=== PATIENT | male | born 1940 | race African-American/Black ===

== ENCOUNTER 2016-09-30 09:52 | Inpatient (IN) ==
[2016-09-30] MEDS ORDERED: NS 1,000 ML IV ONE ×2 (10:07→12:36)
--- NOTE | 2016-09-30 10:14 | PROVIDER DOCUMENTATION ---
HPI-Respiratory General - General Chief Complaint: Shortness of Breath Stated Complaint: Unresponsive Time Seen by Provider: 09/30/16 09:53 Source: EMS Allergies/Adverse Reactions: Patient Allergies Allergy/AdvReac Type Severity Reaction Status Date / Time No Known Allergies Allergy Verified 09/30/16 10:38 Home Medications: Home Medication List Medication Instructions Recorded Confirmed Last Taken Type Aspirin EC 325 mg PO DAILY 09/30/16 09/30/16 09/29/16 07:00 History 325 MG Atorvastatin Calcium [Lipitor] 80 mg PO HS 09/30/16 09/30/16 09/29/16 17:00 History 80 MG Bacitracin 500 unit TOP DAILY 09/30/16 09/30/16 09/29/16 10:00 History 500 UNIT Carvedilol [Coreg] 3.125 mg PO DAILY 09/30/16 09/30/16 09/29/16 10:00 History 3.125 MG Dorzolamide HCl/Timolol Maleat 1 drop BOTH EYES BID 09/30/16 09/30/16 09/29/16 18:00 History [Dorzolamide-Timolol Eye Drops] 1 DROP Latanoprost 1 drop BOTH EYES DAILY 09/30/16 09/30/16 09/29/16 10:00 History 1 DROP Lisinopril 2.5 mg PO DAILY 09/30/16 09/30/16 09/29/16 10:00 History 2.5 MG Phenytoin 100 mg PO DAILY 09/30/16 09/30/16 09/29/16 10:00 History 100 MG CAPSULE - History of Present Illness-Resp Nature of Presenting Problem: Pt is 76 y/o M presents to the ED with respiratory distress. EMS states respiratory distress per correction. EMS states O2 sat of 85 with 5L of oxygen. EMS states long history of smoking. EMS states Pt has cardiac history, mass on lung, and COPD. Severity in ED: reports: moderate Onset/Duration: reports: just prior to arrival Timing: reports: still present Exposure: reports: unknown cause Cough Quality/Degree: reports: no cough Current Respiratory Medication Therapy: Initiated see nurses note Modifying Factors: improves with: nothing Associated Symptoms: reports: shortness of breath. denies: chest pain/soreness , cough, dizziness, earache, facial pain, fever/chills, flu-like symptoms, headache, heart racing, hurts to breathe, hyperventilating, lightheadedness, muscle/bodyaches, nasal congestion, nasal drainage, sinus pain, short of breath , sore throat, sweaty, wheezing Similar Symptoms Previously?: Yes Recently seen or treated by another doctor?: No Review of Systems - Adult - REVIEW OF SYSTEMS - ADULT ROS:: unobtainable per condition Constitutional: denies: chills, fever Eyes: denies: blurred vision, double vision Ears, Nose, Mouth & Throat: denies: ear pain, nose pain, mouth swelling, throat pain Cardiovascular: denies: chest pain, heart murmur, irregular heart rate Respiratory: denies: cough, wheezing Gastrointestinal: denies: abdominal pain, diarrhea, nausea, vomiting Genitourinary: denies: dysuria, hematuria Musculoskeletal: denies: bone pain, joint pain, neck pain Integumentary: denies: hives, itching Neurological: denies: dizziness/vertigo, headache/migraines Psychiatric: reports: no symptoms reported Endocrine: reports: no symptoms reported Hematologic/Lymphatic: reports: no symptoms reported Allergic/Immunologic: reports: no symptoms reported All Other Systems: Reviewed and Negative Past History - Adult - PAST MEDICAL HISTORY-ADULT Review of Records: reports: Nursing Assessment Review, Medications Reviewed, Social history reviewed & non-contributory. Major Childhood Illnesses: reports: denies history Cardiovascular: reports: HTN Respiratory: reports: denies history Gastrointestinal: reports: denies history Obstetrical/Gynecological: reports: denies history Genitourinary: reports: denies history Musculoskeletal: reports: denies history Neurological: reports: CVA, Seizures/Epilepsy Endocrine/Immune: reports: Diabetes Other Conditions: reports: denies history - PRIOR SURGERIES/PROCEDURES Surgical/Procedure History: reports: cardiac stent - IMMUNIZATION STATUS Childhood Immunizations: See Nurse Assessment Flu Vaccine: See Nurse Assessment - FAMILY HISTORY Family History: reviewed, not pertinent - SOCIAL HISTORY Smoking: cigarettes, greater than 1 pack/day Provider spent 3-5 mins advising pt. on dangers of tobacco.: Discussed manners to quit use, and f/u contacts for add'l counseling. Substance Use: denies Living Situation: care facility (correction) Physical Exam-General - PHYSICAL EXAM-ADULT Initial Vital Signs Reviewed: Yes - CONSTITUTIONAL General Appearance: moderate distress, thin. negative: appears well (ill in appearance), alert - HEAD, EARS, NOSE, MOUTH & THROAT HENMT: TMs normal, other (tube placed). negative: moist mucous membranes (dry mucous membrane) - NECK Neck: full range of motion, supple, normal inspection - RESPIRATORY Respiratory: respiratory distress, decreased breath sounds, accessory muscle use , rhonchi (bilateral), retractions, decreased rate - CARDIOVASCULAR Cardiovascular: regular rate, rhythm, no edema, no gallop, no JVD, no murmur - GASTROINTESTINAL (ABDOMEN) Abdominal Exam: normal bowel sounds, soft, no organomegaly, no pulsatile mass - LYMPHATIC Lymphatic: no adenopathy - MUSCULOSKELETAL Extremity: no pedal edema, other (edema in bilateral upper extremities). 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, grossly normal, no motor/ sensory deficits - PSYCHIATRIC Psych/Mental Status: negative: normal mood/affect, normal thought content, normal thought process, oriented x 3 Progress - PLAN OF CARE/RESULTS Progress/Plan/Lab Results: Orders Category Date Time Status Cardiac Monitoring DIRECTED Care 09/30/16 09:57 Active Vaughan Cath Insertion ORDERED Care 09/30/16 10:10 Active IV Insertion ORDERED Care 09/30/16 09:57 Active Notify MD of + Sepsis Screen NOW Care 09/30/16 09:57 Active CHEST-PORTABLE [RAD] Stat Exams 09/30/16 09:58 Ordered BLOOD CULTURE [BLDCUL] Stat Lab 09/30/16 10:21 Ordered CBC WITH DIFF [HEME] Stat Lab 09/30/16 10:05 Ordered CK PROFILE [SP CHEM] Stat Lab 09/30/16 10:05 Ordered COMPREHENSIVE METABOLIC PANEL [CHEM] Stat Lab 09/30/16 10:05 Ordered LACTATE, PLASMA [CHEM] Stat Lab 09/30/16 10:05 Ordered PROTIME WITH INR [COAG] Stat Lab 09/30/16 10:05 Ordered PTT [COAG] Stat Lab 09/30/16 10:05 Ordered TROPONIN T Stat Lab 09/30/16 10:05 Ordered URINALYSIS W/POSS RFLX CULT [URINALYSIS] Stat Lab 09/30/16 09:57 Uncollected 0.9% Sodium Chloride Inj [Ns] 1,000 ml Med 09/30/16 10:07 Active IV 999 mls/hr Dextrose 5%-0.45% NaCl Inj [D5 1/2 Ns] 250 ml Med 09/30/16 11:00 Active Norepinephrine [Levophed] 8 mg IV As Directed Oxygen Device Stat Oth 09/30/16 09:57 Active Vital Signs - 24 hr 09/30/16 09/30/16 09/30/16 09:54 09:55 10:00 Temperature Pulse Rate 89 71 70 Respiratory 6 L 16 Rate Blood Pressure 77/58 77/58 O2 Sat by Pulse 98 98 Oximetry 09/30/16 09/30/16 09/30/16 10:05 10:07 10:08 Temperature 97.2 F L Pulse Rate 82 88 Respiratory 15 28 H Rate Blood Pressure 140/97 62/40 O2 Sat by Pulse 97 97 Oximetry 09/30/16 09/30/16 09/30/16 10:09 10:16 10:19 Temperature Pulse Rate 90 90 91 H Respiratory 15 16 19 Rate Blood Pressure 70/40 71/41 72/45 O2 Sat by Pulse 92 L Oximetry Laboratory Tests 09/30/16 09/30/16 09/30/16 10:00 10:00 10:00 WBC 9.84 RBC 3.69 L Hgb 11.2 L Hct 35.4 L MCV 95.9 MCH 30.4 MCHC 31.6 L RDW Std Deviation 13.9 Plt Count 168 MPV 11.5 H Immature Gran % (Auto) 0.0 Neut % (Auto) 92.8 H Lymph % (Auto) 4.[address] % (Auto) 3.0 Eos % (Auto) 0.1 Baso % (Auto) 0.0 Immature Gran # (Auto) 0.00 Neut # (Auto) 9.13 H Lymph # (Auto) 0.[address] [place] # (Auto) 0.30 Eos # (Auto) 0.01 Baso # (Auto) 0.00 PT 11.0 INR 1.04 PTT (Actin FS) 29.6 Specimen Type Sample Site pH pCO2 pO2 HCO3 Base Excess Oxyhemoglobin ABG O2 Sat (Calculated) ABG O2 Saturation ABG Carboxyhemoglobin ABG Methemoglobin Alexx Test A-a O2 Difference Total Hemoglobin Lactate Blood Gas Modality Vent Mode Spontaneous Rate FiO2 % Tidal Volume PEEP Sodium 138 Potassium 4.2 Chloride 97 L Carbon Dioxide 35 Anion Gap 6 BUN 52 H Creatinine 0.9 Estimated GFR/1.73 m2 > 60 BUN/Creatinine Ratio 58 Glucose 379 H Calculated Osmolality 305 Calcium 8.8 Total Bilirubin 0.26 AST 28 ALT 27 Alkaline Phosphatase 135 H Creatine Kinase 49 Troponin T Total Protein 6.7 Albumin 2.8 L Globulin 3.9 Albumin/Globulin Ratio 0.7 Urine Source Urine Color Urine Turbidity Urine pH Ur Specific [place] Urine Protein Ur Glucose (Stick) Ur Ketones (Stick) Urine Blood Urine Nitrite Urine Bilirubin Urobilinogen Dipstick Urine Leukocytes Urine WBC (Auto) Urine RBC (Auto) U Epithel Cells (Auto) Urine Bacteria (Auto) 09/30/16 09/30/16 09/30/16 10:00 10:35 11:07 WBC RBC Hgb Hct MCV MCH MCHC RDW Std Deviation Plt Count MPV Immature Gran % (Auto) Neut % (Auto) Lymph % (Auto) [place] % (Auto) Eos % (Auto) Baso % (Auto) Immature Gran # (Auto) Neut # (Auto) Lymph # (Auto) [place] # (Auto) Eos # (Auto) Baso # (Auto) PT INR PTT (Actin FS) Specimen Type ARTERIAL Sample Site R RADIAL pH 7.33 L pCO2 62 H* pO2 178 H HCO3 29.0 H Base Excess 5.2 H Oxyhemoglobin 96.2 ABG O2 Sat (Calculated) 16.2 ABG O2 Saturation 99.4 ABG Carboxyhemoglobin 1.20 ABG Methemoglobin 2.0 H Alexx Test YES A-a O2 Difference 458.0 Total Hemoglobin 11.7 Lactate 1.30 Blood Gas Modality VENTILATOR Vent Mode A/C Spontaneous Rate 16 FiO2 % 100.0 Tidal Volume 450 PEEP 5.0 Sodium Potassium Chloride Carbon Dioxide Anion Gap BUN Creatinine Estimated GFR/1.73 m2 BUN/Creatinine Ratio Glucose Calculated Osmolality Calcium Total Bilirubin AST ALT Alkaline Phosphatase Creatine Kinase Troponin T < 0.010 Total Protein Albumin Globulin Albumin/Globulin Ratio Urine Source CATH Urine Color YELLOW Urine Turbidity CLEAR Urine pH 6.0 Ur Specific [place] 1.023 Urine Protein 30 A Ur Glucose (Stick) 70 A Ur Ketones (Stick) NEGATIVE Urine Blood NEGATIVE Urine Nitrite NEGATIVE Urine Bilirubin NEGATIVE Urobilinogen Dipstick NORMAL Urine Leukocytes NEGATIVE Urine WBC (Auto) <10 Urine RBC (Auto) <10 U Epithel Cells (Auto) <10 Urine Bacteria (Auto) NEGATIVE Laboratory Tests 09/30/16 09/30/16 09/30/16 10:00 10:00 10:00 WBC 9.84 RBC 3.69 L Hgb 11.2 L Hct 35.4 L MCV 95.9 MCH 30.4 MCHC 31.6 L RDW Std Deviation 13.9 Plt Count 168 MPV 11.5 H Immature Gran % (Auto) 0.0 Neut % (Auto) 92.8 H Lymph % (Auto) 4.[address] % (Auto) 3.0 Eos % (Auto) 0.1 Baso % (Auto) 0.0 Immature Gran # (Auto) 0.00 Neut # (Auto) 9.13 H Lymph # (Auto) 0.[address] # (Auto) 0.30 Eos # (Auto) 0.01 Baso # (Auto) 0.00 PT 11.0 INR 1.04 PTT (Actin FS) 29.6 Specimen Type Sample Site pH pCO2 pO2 HCO3 Base Excess Oxyhemoglobin ABG O2 Sat (Calculated) ABG O2 Saturation ABG Carboxyhemoglobin ABG Methemoglobin Alexx Test A-a O2 Difference Total Hemoglobin Lactate Blood Gas Modality Vent Mode Spontaneous Rate FiO2 % Tidal Volume PEEP Sodium 138 Potassium 4.2 Chloride 97 L Carbon Dioxide 35 Anion Gap 6 BUN 52 H Creatinine 0.9 Estimated GFR/1.73 m2 > 60 BUN/Creatinine Ratio 58 Glucose 379 H Calculated Osmolality 305 Calcium 8.8 Total Bilirubin 0.26 AST 28 ALT 27 Alkaline Phosphatase 135 H Creatine Kinase 49 Troponin T Total Protein 6.7 Albumin 2.8 L Globulin 3.9 Albumin/Globulin Ratio 0.7 Plasma Lactate Urine Source Urine Color Urine Turbidity Urine pH Ur Specific [place] Urine Protein Ur Glucose (Stick) Ur Ketones (Stick) Urine Blood Urine Nitrite Urine Bilirubin Urobilinogen Dipstick Urine Leukocytes Urine WBC (Auto) Urine RBC (Auto) U Epithel Cells (Auto) Urine Bacteria (Auto) 09/30/16 09/30/16 09/30/16 10:00 10:35 10:45 WBC RBC Hgb Hct MCV MCH MCHC RDW Std Deviation Plt Count MPV Immature Gran % (Auto) Neut % (Auto) Lymph % (Auto) [place] % (Auto) Eos % (Auto) Baso % (Auto) Immature Gran # (Auto) Neut # (Auto) Lymph # (Auto) [place] # (Auto) Eos # (Auto) Baso # (Auto) PT INR PTT (Actin FS) Specimen Type Sample Site pH pCO2 pO2 HCO3 Base Excess Oxyhemoglobin ABG O2 Sat (Calculated) ABG O2 Saturation ABG Carboxyhemoglobin ABG Methemoglobin Alexx Test A-a O2 Difference Total Hemoglobin Lactate Blood Gas Modality Vent Mode Spontaneous Rate FiO2 % Tidal Volume PEEP Sodium Potassium Chloride Carbon Dioxide Anion Gap BUN Creatinine Estimated GFR/1.73 m2 BUN/Creatinine Ratio Glucose Calculated Osmolality Calcium Total Bilirubin AST ALT Alkaline Phosphatase Creatine Kinase Troponin T < 0.010 Total Protein Albumin Globulin Albumin/Globulin Ratio Plasma Lactate 1.7 Urine Source CATH Urine Color YELLOW Urine Turbidity CLEAR Urine pH 6.0 Ur Specific [place] 1.023 Urine Protein 30 A Ur Glucose (Stick) 70 A Ur Ketones (Stick) NEGATIVE Urine Blood NEGATIVE Urine Nitrite NEGATIVE Urine Bilirubin NEGATIVE Urobilinogen Dipstick NORMAL Urine Leukocytes NEGATIVE Urine WBC (Auto) <10 Urine RBC (Auto) <10 U Epithel Cells (Auto) <10 Urine Bacteria (Auto) NEGATIVE 09/30/16 11:07 WBC RBC Hgb Hct MCV MCH MCHC RDW Std Deviation Plt Count MPV Immature Gran % (Auto) Neut % (Auto) Lymph % (Auto) [place] % (Auto) Eos % (Auto) Baso % (Auto) Immature Gran # (Auto) Neut # (Auto) Lymph # (Auto) [place] # (Auto) Eos # (Auto) Baso # (Auto) PT INR PTT (Actin FS) Specimen Type ARTERIAL Sample Site R RADIAL pH 7.33 L pCO2 62 H* pO2 178 H HCO3 29.0 H Base Excess 5.2 H Oxyhemoglobin 96.2 ABG O2 Sat (Calculated) 16.2 ABG O2 Saturation 99.4 ABG Carboxyhemoglobin 1.20 ABG Methemoglobin 2.0 H Alexx Test YES A-a O2 Difference 458.0 Total Hemoglobin 11.7 Lactate 1.30 Blood Gas Modality VENTILATOR Vent Mode A/C Spontaneous Rate 16 FiO2 % 100.0 Tidal Volume 450 PEEP 5.0 Sodium Potassium Chloride Carbon Dioxide Anion Gap BUN Creatinine Estimated GFR/1.73 m2 BUN/Creatinine Ratio Glucose Calculated Osmolality Calcium Total Bilirubin AST ALT Alkaline Phosphatase Creatine Kinase Troponin T Total Protein Albumin Globulin Albumin/Globulin Ratio Plasma Lactate Urine Source Urine Color Urine Turbidity Urine pH Ur Specific [place] Urine Protein Ur Glucose (Stick) Ur Ketones (Stick) Urine Blood Urine Nitrite Urine Bilirubin Urobilinogen Dipstick Urine Leukocytes Urine WBC (Auto) Urine RBC (Auto) U Epithel Cells (Auto) Urine Bacteria (Auto) - EKG 1 Time of EKG reading by physician:: 10:00 EKG Read and Signed by:: Nawaf Christian EKG Interpretation (*Must complete 3 of following elements*): Abnormal (rhythm - sinus rhythm with premature supraventricular complexes & with occasional premature ventricular complexes and fusion complexes. cannot rule out anteroseptal infarct, age undetermined) Rate: 97 Rhythm: Comments: low voltage QRS; RBBB; possible inferior infacrt, age undetermined - XRAY 1 XRAY: Bilateral XRAY Study: Chest Impression: Abnormal XRAY Interpretation: EP tip over trachea at about C4; right effusion - CONSULTS/PCP/HOSPITALIST Notification #1 *Consult/PCP/Hospitalist*: Dr. Coffey Time Discussed: 11:58 (Dr. Coffey accepted admit ) Reason/Comments: Dr. Christian consults with Dr. Coffey about admit of Pt Consult Disposition: Will see in ED, Admit Departure - Departure Time of Disposition Order: 11:59 DIAGNOSIS: SVC syndrome Lung cancer Qualifiers: Laterality: unspecified laterality Lung location: unspecified part of lung Qualified Code(s): C34.90 - Malignant neoplasm of unspecified part of unspecified bronchus or lung Respiratory failure Qualifiers: Chronicity: unspecified Respiratory failure complication: unspecified whether with hypoxia or hypercapnia Qualified Code(s): J96.90 - Respiratory failure, unspecified, unspecified whether with hypoxia or hypercapnia Disposition: ADMITTED INPATIENT 09 Certified Medical Emergency: Emergent Condition: Stable Additional Instructions: ED Follow Up Instructions: You have been treated by a care provider in the Emergency Department. These instructions are being provided to you so you can have an understanding of how to care for yourself upon discharge. Upon discharge from the Emergency Department, you are responsible for making arrangements for follow-up care by a physician of your choice. Take all prescribed medications as directed. Return to the Emergency Department immediately for any new or worsening symptoms. You may call the Physician Referral phone number at [phone] to obtain a list of Physicians who are taking new patients. Attestation - Scribe Verification/Attestation Scribe:: Padmini Wheatley Acting as Scribe for:: Nawaf Christian Scribe documention review:: This chart was documented by a scribe and accurately reflects the service the provider performed and the decisions made by the provider.
[2016-09-30] MEDS: LEVOPHED 8 MG in D5 1/2 NS 250 ML IV SCH ×5 (10:20→17:37)
[2016-09-30 10:45] LABS: URINE CULTURE NEEDED? NO; URINE MICRO REVIEW NEEDED? NO; URINE SOURCE CATH
[2016-09-30 10:54] LABS: EOS# 0.01 X1000 (0.0-0.7); EOS% 0.1 % (0.0-10.0); HEMATOCRIT 35.4 % (42.0-52.0); HEMOGLOBIN 11.2 g/dL (14.0-18.0); LYMPH% 4.1 % (20.5-51.1); MANUAL DIFF NEEDED? NO; MCH 30.4 PG (27-31); MCHC 31.6 g/dL (33-37); MCV 95.9 FL (81-99); MPV 11.5 FL (7.4-10.4); NEUT% 92.8 % (42.2-75.2); PLT 168 X1000 (130-400); RBC 3.69 XMIL (4.7-6.1)
[2016-09-30 10:55] LABS: BILIRUBIN URINE NEGATIVE (NEGATIVE); BLOOD URINE NEGATIVE (NEGATIVE); COLOR YELLOW; GLUCOSE URINE 70 mg/dL (NEGATIVE); LEUKOCYTES URINE NEGATIVE (NEGATIVE); NITRITE URINE NEGATIVE (NEGATIVE); PROTEIN URINE 30 mg/dL (NEGATIVE); SP GRAVITY URINE 1.023; TURBIDITY URINE CLEAR (CLEAR); UROBILINOGEN URINE NORMAL (NORMAL)
[2016-09-30 10:56] LABS: UR EPITHELIAL CELLS <10 /HPF (<10); URINE BACTERIA NEGATIVE /HPF; URINE RBC <10 /HPF (<10); URINE WBC <10 /HPF (<10)
[2016-09-30 11:00] LABS: AGAP 6; ALBUMIN 2.8 g/dL (3.5-5.0); ALKALINE PHOSPHATASE 135 U/L (32-122); BUN 52 mg/dL (8-22); CALCIUM 8.8 mg/dL (8.8-10.2); CHLORIDE 97 mmol/L (98-107); CK PROFILE 49 U/L (24-204); COSMO 305; GOT 28 U/L (10-34); GPT 27 U/L (10-44); INR 1.04; POTASSIUM 4.2 mmol/L (3.5-5.1); PTT 29.6 Seconds (22.0-36.0); SODIUM 138 mmol/L (136-145); TCO2 35 mmol/L (25-35); TOTAL BILIRUBIN 0.26 mg/dL (0.20-1.00); TOTAL PROTEIN 6.7 g/dL (6.3-8.3)
[2016-09-30] MEDS: DIPRIVAN 1% 100 ML IV SCH ×2 (11:01→11:41)
[2016-09-30 11:17] LABS: ALLEN TEST YES; BE 5.2 mmoll (-3.0-3.0); BLOOD TYPE ARTERIAL; DRAW SITE R RADIAL; MODALITY VENTILATOR; O2(CT) 16.2 mL/dL (15.0-23.0); PO2(98.6) 178 mmHg (60-100); SAMPLE BLOOD; SAO2 99.4 % (95.0-100.0); SRATE 16 BPM; THB 11.7 g/dL (11.5-17.4); TVOL 450 mL; pH(98.6) 7.33 (7.35-7.45)
[2016-09-30 11:18] LABS: PCO2(98.6) 62 mmHg (35-45)
[2016-09-30] MEDS ORDERED: HUMULIN R SUBQ ONE (11:28)
[2016-09-30] MEDS ORDERED: MORPHINE IV PRN (12:01)
[2016-09-30] MEDS ORDERED: NS 1,000 ML IV SCH (12:15)
[2016-09-30] MEDS ORDERED: ZOSYN 3.375 GM/NS 50 ML IV ONE (12:34)
[2016-09-30] MEDS ORDERED: VANCOMYCIN 1 GM/NS 250 ML IV ONE (12:35)
[2016-09-30] MEDS ORDERED: LEVAQUIN 500 MG/D5W 100 ML IV SCH (13:45)
[2016-09-30] MEDS: DILANTIN IV SCH (14:07)
[2016-09-30] MEDS: POTASSIUM CHLORIDE 10 MEQ in NS 1,000 ML IV SCH ×2 (14:07→21:19)
[2016-09-30] MEDS ORDERED: NS 1,000 ML ONE (15:02)
--- NOTE | 2016-09-30 15:16 | Diag Imaging Result Document ---
PROCEDURE NAME: CHEST-PORTABLE - 09/30/2016 SINGLE FRONTAL RADIOGRAPH OF THE CHEST: COMPARISON: 09/20/2012. FINDINGS: There is a recently placed ET tube projecting over the trachea and above the merry at about the T3-4 level. Electrode pads project over the center of the chest. There is increased central vasculature, especially on the right suggesting pulmonary venous congestion. There is suggestion of mild interstitial thickening on the right likely representing mild central edema. There is a right pleural fluid collection tracking around the right lung from the apex to the base. It is at least moderate in size. Cardiac silhouette is partially obscured by the overlying electrode pads. It appears to be approximately stable, however. IMPRESSION: 1. Recent placement of ET tube as described. 2. Suggestion of pulmonary venous congestion. 3. Development of at least a moderate-size right pleural effusion.
[2016-09-30 16:35] LABS: ALLEN TEST YES; BE 4.9 mmoll (-3.0-3.0); BLOOD TYPE ARTERIAL; DRAW SITE L RADIAL; METHB 2.1 % (0.0-1.5); MODALITY VENTILATOR; O2(CT) 15.7 mL/dL (15.0-23.0); PCO2(98.6) 48 mmHg (35-45); PO2(98.6) 241 mmHg (60-100); SAMPLE BLOOD; SAO2 99.4 % (95.0-100.0); SRATE 18 BPM; THB 11.2 g/dL (11.5-17.4); TVOL 450 mL; pH(98.6) 7.41 (7.35-7.45)
[2016-09-30] MEDS ORDERED: NS 500 ML IV ONE (17:41)
--- NOTE | 2016-09-30 19:55 | HISTORY AND PHYSICAL ---
CHIEF COMPLAINT: Found at [facility] unresponsive and dyspneic. HISTORY OF PRESENT ILLNESS: He was brought to [facility] by ambulance with respiratory failure. He was evaluated in the emergency room and found to have right pleural effusion, edema of his arms and increased jugular venous distention. This was suggestive of superior vena cava syndrome. There was a mediastinal mass in the right chest. He is known to have lung cancer and has been at [facility] since 09/19. Before that he was at [facility] with final diagnoses of chest pain and shortness of breath, anterior mediastinal adenopathy, partial seizures, history of left-sided middle cerebral artery stroke, hypertension, diabetes, and glaucoma. CT of his chest without contrast on 09/13/2016 showed right mediastinal and right hilar adenopathy with compression of the superior vena cava. Biopsy was considered, but decision was made not to proceed due to feeling of poor outcome irregardless. He was apparently DNR at [facility], then full code at [facility]. Family was not available in the emergency room prior to the patient being intubated. INITIAL LABORATORY: Hemoglobin 11.2, hematocrit 35.4, white blood count 9800. Sodium 138, potassium 4.2, BUN 52, creatinine 0.9. Glucose 379, alkaline phosphatase 135, albumin 2.8. Total protein 6.7, plasma lactate 1.7. Blood gases: pH 7.33, pCO2 62, PO2 178 on 100%. FiO2 per ventilator with rate of 16, tidal volume 450, and PEEP 5.0. PRESENT MEDICATIONS: Aspirin enteric coated 325 mg daily, atorvastatin 80 mg daily at bedtime, carvedilol 3.125 mg daily, dorzolamide/timolol eye drops 1 drop in both eyes b.i.d., Latanoprost eye drops 1 drop in each eye daily, lisinopril 2.5 mg 1 daily, Dilantin 100 mg daily. ALLERGIES: None known. FAMILY HISTORY: Significant for hypertension and heart disease, also diabetes. SOCIAL HISTORY: Lives at home with family. There is no history of recent smoking or alcohol usage. He has recently been at [facility] as above. PHYSICAL EXAMINATION: GENERAL: Unresponsive on propofol and ventilator. HEENT: Pupils equal and reactive to light. Tympanic membranes without inflammation. NECK: Supple with jugular venous distention. There is no mass or organomegaly. EXTREMITIES: Swelling of his arms with right being greater than left. HEART: Occasionally irregular. Monitor showing multifocal PVCs. LUNGS: Decreased breath sounds and rhonchi on the right. ABDOMEN: Scaphoid with no mass or organomegaly. EXTREMITIES: There is no ankle edema. RECTAL/GENITALIA: Deferred. NEUROLOGICAL: Difficult to assess with the patient being on propofol. IMPRESSION: Lung cancer on the right, right pleural effusion, respiratory failure, superior vena cava syndrome, cerebrovascular disease, history of partial seizures, history of glaucoma. PLAN: Discussion was made with the family who understand the seriousness of his condition. Attempts will be made to assist respiration and treat conservatively. If he does not improve in a couple of days, consideration will be made for removal of ventilator and comfort measures only. The family understands and agrees.
[2016-10-01] MEDS: DILANTIN IV SCH ×2 (00:58→13:59)
[2016-10-01] MEDS ORDERED: DIPRIVAN 1% 100 ML IV SCH ×2 (01:31→16:00)
[2016-10-01] MEDS: POTASSIUM CHLORIDE 10 MEQ in NS 1,000 ML IV SCH ×4 (03:39→23:34)
[2016-10-01 04:36] LABS: ALLEN TEST YES; BE 3.3 mmoll (-3.0-3.0); BLOOD TYPE ARTERIAL; DRAW SITE R RADIAL; METHB 1.9 % (0.0-1.5); O2(CT) 23.3 mL/dL (15.0-23.0); PCO2(98.6) 47 mmHg (35-45); PO2(98.6) 129 mmHg (60-100); SAMPLE BLOOD; SAO2 100.1 % (95.0-100.0); SRATE 16 BPM; TVOL 450 mL
[2016-10-01 04:40] LABS: MODALITY VENTILATOR
--- NOTE | 2016-10-01 05:57 | EKG Report ---
Test Performed on : 09/30/2016 10:00:14 AM Test Reason : No Order in [facility] Blood Pressure : / mmHG Vent. Rate : 097 BPM Atrial Rate : 097 BPM P-R Int : 176 ms QRS Dur : 120 ms QT Int : 412 ms P-R-T Axes : 088 066 064 degrees QTc Int : 523 ms Sinus rhythm. with premature supraventricular complexes. and with occasional premature ventricular co mplexes. and fusion complexes Low voltage QRS Right bundle branch block Possible Inferior infarct , age undetermined Cannot rule out Anteroseptal infarct (cited on or before 11-SEP-2012) Abnormal ECG When compared with ECG of 30-SEP-2016 09:59, (Unconfirmed) fusion complexes are now present premature supraventricular complexes. are now present QRS axis shifted left Unconfirmed Result
[2016-10-01] MEDS ORDERED: VANCOMYCIN IV PER PHARMACY MISC SCH (06:00)
[2016-10-01] MEDS: ZOSYN 3.375 GM/NS 50 ML IV SCH ×4 (06:10→23:43)
[2016-10-01] MEDS: LEVOPHED 8 MG in D5 1/2 NS 250 ML IV SCH (06:10)
--- NOTE | 2016-10-01 07:53 | Diag Imaging Result Document ---
PROCEDURE NAME: CHEST-PORTABLE - 10/01/2016 SINGLE FRONTAL RADIOGRAPH OF THE CHEST: COMPARISON: 09/30/2016. FINDINGS: ET tube is stable. An NG tube projects below the diaphragm and out of the field of view. There is diffuse interstitial infiltrate that is approximately stable. There is a right pleural fluid collection that is unchanged. The right hilar region appears prominent similar to the previous study. On this study, it appears slightly rounded. A central mass cannot completely be excluded. Consider correlation with a chest CT, preferably with IV contrast if not contraindicated. Cardiac silhouette is stable. IMPRESSION: 1. Prominence of the right hilum that appear slightly rounded on the current study and could represent hilar lymphadenopathy. Please see above discussion. 2. Otherwise, the chest is essentially stable.
[2016-10-01] MEDS ORDERED: NS 500 ML IV ONE (08:02)
[2016-10-01 10:14] LABS: ALLEN TEST YES; BE 6.8 mmoll (-3.0-3.0); BLOOD TYPE ARTERIAL; DRAW SITE R RADIAL; METHB 1.9 % (0.0-1.5); O2(CT) 14.6 mL/dL (15.0-23.0); PCO2(98.6) 50 mmHg (35-45); PO2(98.6) 81 mmHg (60-100); SAMPLE BLOOD; SAO2 97.8 % (95.0-100.0); THB 10.9 g/dL (11.5-17.4); pH(98.6) 7.42 (7.35-7.45)
[2016-10-01 10:16] LABS: MODALITY VENTILATOR
[2016-10-01] MEDS ORDERED: LANOXIN IV ONE (12:06)
--- NOTE | 2016-10-01 13:22 | PROGRESS NOTE ---
DATE: 10/01/2016 VITAL SIGNS: Temperature 96.7 degrees, heart rate 92, respirations 16 per vent, blood pressure 97/60, O2 saturation 100% on ventilator with 60% FiO2. Blood gases, pH 7.40, pCO2 47, PO2 129. He continues to be on a low-dose of Levophed and propofol. Chest x-ray looks similar to yesterday with prominent right hilum, interstitial infiltrate, stable, and right pleural fluid unchanged. I O has a positive balance of 3484. PLAN: Taper Levophed and propofol, also taper vent settings. Because of his hypotension, additional fluid bolus with normal saline is given. Blood cultures are growing gram-negative rods and gram-positive cocci. Antibiotics were changed to Zosyn and vancomycin. Despite lactate being 1.7, with his hypotension he probably has sepsis. Supportive care is continued and he is level 2 DNR.
[2016-10-01] MEDS: VANCOMYCIN 1 GM/NS 250 ML IV SCH (13:59)
--- NOTE | 2016-10-01 15:22 | EKG Report ---
Test Performed on : 10/01/2016 11:37:33 AM Test Reason : CCU. Not ordered in [place] Blood Pressure : / mmHG Vent. Rate : 126 BPM Atrial Rate : 037 BPM P-R Int : 000 ms QRS Dur : 120 ms QT Int : 382 ms P-R-T Axes : 000 -82 094 degrees QTc Int : 553 ms Atrial fibrillation. with rapid ventricular response. with premature ventricular or aberrantly conduc linda complexes. Left axis deviation Low voltage QRS RSR' or QR pattern in V1 suggests right ventricular conduction delay Inferior infarct , age undetermined When compared with ECG of September 30, 2016- Atrial fibrillation. has replaced Normal sinus rhythm. Inferior infarct is new. Confirmed by Sly Overton MD ([id number]) on 10/02/2016 9:35:27 PM
[2016-10-01 15:25] LABS: ALLEN TEST YES; BE 7.3 mmoll (-3.0-3.0); BLOOD TYPE ARTERIAL; DRAW SITE R RADIAL; METHB 2.2 % (0.0-1.5); O2(CT) 14.7 mL/dL (15.0-23.0); PCO2(98.6) 45 mmHg (35-45); PO2(98.6) 132 mmHg (60-100); SAMPLE BLOOD; SAO2 99.1 % (95.0-100.0); SRATE 16 BPM; THB 10.7 g/dL (11.5-17.4); TVOL 450 mL; pH(98.6) 7.46 (7.35-7.45)
[2016-10-01 15:26] LABS: MODALITY VENTILATOR
[2016-10-01] MEDS: DIPRIVAN 1% 100 ML IV SCH (17:04)
[2016-10-02] MEDS: DILANTIN IV SCH ×2 (02:21→12:56)
[2016-10-02] MEDS: DIPRIVAN 1% 100 ML IV SCH ×2 (03:44→17:01)
[2016-10-02 04:34] LABS: ALLEN TEST YES; BE 8.9 mmoll (-3.0-3.0); BLOOD TYPE ARTERIAL; DRAW SITE R RADIAL; METHB 2.2 % (0.0-1.5); O2(CT) 12.6 mL/dL (15.0-23.0); PCO2(98.6) 41 mmHg (35-45); PO2(98.6) 72 mmHg (60-100); SAMPLE BLOOD; SAO2 97.5 % (95.0-100.0); SRATE 16 BPM; THB 9.5 g/dL (11.5-17.4); TVOL 450 mL; pH(98.6) 7.51 (7.35-7.45)
[2016-10-02 04:36] LABS: MODALITY VENTILATOR
[2016-10-02] MEDS: POTASSIUM CHLORIDE 10 MEQ in NS 1,000 ML IV SCH (05:28)
[2016-10-02] MEDS: ZOSYN 3.375 GM/NS 50 ML IV SCH ×3 (05:28→17:37)
[2016-10-02 05:36] LABS: EOS# 0.01 X1000 (0.0-0.7); EOS% 0.1 % (0.0-10.0); HEMATOCRIT 27.7 % (42.0-52.0); IMM GRAN# 0.02 X1000 (0.0-0.04); IMM GRAN% 0.2 % (0.0-0.5); LYMPH# 0.35 X1000 (1.2-3.4); LYMPH% 4.1 % (20.5-51.1); MANUAL DIFF NEEDED? YES; MCH 30.3 PG (27-31); MCHC 32.5 g/dL (33-37); MCV 93.3 FL (81-99); MONO# 0.15 X1000 (0.11-0.59); MONO% 1.8 % (1.7-9.3); MPV 11.6 FL (7.4-10.4); NEUT% 93.8 % (42.2-75.2); PLT 105 X1000 (130-400); RBC 2.97 XMIL (4.7-6.1)
[2016-10-02 06:06] LABS: AGAP 11; ALBUMIN 2.1 g/dL (3.5-5.0); ALKALINE PHOSPHATASE 95 U/L (32-122); BUN 47 mg/dL (8-22); CALCIUM 7.9 mg/dL (8.8-10.2); CHLORIDE 107 mmol/L (98-107); COSMO 311; GOT 25 U/L (10-34); GPT 19 U/L (10-44); POTASSIUM 3.7 mmol/L (3.5-5.1); SODIUM 147 mmol/L (136-145); TCO2 29 mmol/L (25-35); TOTAL BILIRUBIN 0.26 mg/dL (0.20-1.00); TOTAL PROTEIN 5.4 g/dL (6.3-8.3)
--- NOTE | 2016-10-02 07:38 | Diag Imaging Result Document ---
PROCEDURE NAME: CHEST-PORTABLE - 10/02/2016 SINGLE FRONTAL RADIOGRAPH OF THE CHEST: COMPARISON: 10/01/2016. FINDINGS: ET tube is in stable position. NG tube projects below the diaphragm and out of the field of view. Diffuse infiltrate throughout the right lung is stable. Prominent right hilum is unchanged. No new consolidations identified. Cardiac silhouette is stable. IMPRESSION: Stable chest.
[2016-10-02 08:36] LABS: BANDS 8 % (0-1); LYMPHS 4 % (21-51); MONO 2 % (1-9)
--- NOTE | 2016-10-02 11:43 | PROGRESS NOTE ---
DATE: 10/02/2016 OBJECTIVE: Vital signs: Temperature 97.2 degrees, heart rate 82 and irregular, atrial fibrillation, respiratory rate 16, blood pressure 121/56. O2 saturation 99% on ventilator with FiO2 30%. LABORATORY DATA: ABGs with pH 7.5, pCO2 41, pO2 72, rate 16, volume 450, PEEP 5.0, hemoglobin 9.0. Hematocrit 27.7. White blood count 8600. Sodium 147. Potassium 3.7, BUN 47, creatinine 0.9. Glucose 208, protein 5.4, albumin 2.1. Chest x-ray is unchanged. There is diffuse infiltrate in the right lung and hilar adenopathy. Left lung is clear. ASSESSMENT/PLAN: He responds at times to nursing staff. Attempts were made to wean his rate this morning and this was unsuccessful. He is back on above ventilator settings. Discussion is made with the family. Also discussion is made with Dr. Olivares and consultation to evaluate other options in treatment. BiPAP would be a possibility. If there is no improvement by tomorrow, ventilator may be discontinued and patient given comfort measures only.
[2016-10-02] MEDS: D5 1/4 NS 1,000 ML IV SCH ×2 (12:31→21:33)
[2016-10-02] MEDS: VANCOMYCIN 1 GM/NS 250 ML IV SCH (15:40)
--- NOTE | 2016-10-02 16:25 | CONSULTATION ---
DATE OF CONSULTATION: 10/02/2016 REQUESTING PHYSICIAN: Dr. Nawaf Coffey. REASON FOR CONSULTATION: Pulmonary evaluation. HISTORY OF PRESENT ILLNESS: Mr. Bartholomew is a 76-year-old, black male with extensive tobacco history, who was admitted to [facility] on 09/13/2016 with increasing shortness of breath. The patient has history of strokes, ischemic cardiomyopathy, and vascular dementia. The patient had lost 20-30 pounds over the last year. Chest x-ray revealed hilar fullness. CT scan of the thorax was performed which revealed extensive tumor/adenopathy in the mediastinum beginning at the level of the aortic arch and extending to the level of the pulmonary veins. There was marked narrowing/compression of the superior vena cava. There was small to right-sided pleural effusion and a small left-sided pleural effusion. There was extensive emphysematous changes. The patient was evaluated by pulmonary medicine according to the family's report and was felt to be too weak to undergo a diagnostic evaluation and he was too weak to undergo chemotherapy and radiation. Family reports he was discharged to the shelter in the hopes that he would get stronger and to undergo additional evaluation. The patient was brought to the emergency room from the shelter with respiratory distress on 10/02/2016. Chest x-ray now reveals moderate right- sided pleural effusion along with extensive infiltrates in the right lung. Attempts to extubate/wean patient have been unsuccessful. PAST MEDICAL HISTORY/PROBLEM LIST: 1. Dementia with expressive aphasia. 2. 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 3. Vascular dementia. 4. Coronary artery disease with myocardial infarctions in 2001 and 2004. 5. Ischemic cardiomyopathy. 6. History of partial seizures. 7. Glaucoma. SOCIAL HISTORY: Patient has a 60 pack year history for tobacco use. No alcohol use. FAMILY HISTORY: Noncontributory to current presentation. PHYSICAL EXAMINATION: General: Reveals a chronically ill-appearing, black male, on mechanical ventilation. He is currently on Levophed for hypotension. Vital Signs: Blood pressure 127/54, heart rate 92, respiration rate 16, oxygen saturation 98%. HEENT: Pupils are equal and sluggish. Oropharynx is clear, but evaluation is limited with endotracheal tube in place. Neck: Supple. Chest: Reveals coarse rhonchi, right greater than left chest. Cardiac exam: Regular rate. Normal S1, normal S2. Abdomen: Soft without hepatosplenomegaly. Extremities: Reveal increased edema/swelling of both upper extremities. LABORATORIES: Chest x-ray reveals diffuse infiltrates throughout the right lung with fullness of the right hilum. White blood count 8.6, hemoglobin 9.0. Chemistry: Sodium 147, potassium 3.7, chloride 107, BUN 47, creatinine 0.7. Arterial blood gas, pH 7.51, pCO2 of 41, pO2 of 72. Microbiology reveals Serratia marcescens and a second gram-negative ro. IMPRESSION: A 76-year-old with: 1. Extensive mediastinal disease consistent with lung cancer. 2. 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 3. Extremely poor performance status, with multiple comorbidities including prior stroke and cardiomyopathy. 4. Has been admitted to the hospital with acute hypoxemic respiratory failure and new radiographic changes in the right lung. Patient most likely has a gram-negative pneumonia, possibly related to an aspiration event. With his debilitated state, superior vena cava syndrome, extensive mediastinal tumor burden, cachexia/protein calorie malnutrition, and pneumonia, his prognosis is extremely poor. I have spoken with one of his daughters. He is unlikely to improve to the point that he could undergo biopsies with a diagnosis of lung cancer and most certainly will not be a candidate for aggressive treatments given his debilitated status. Dr. Coffey indicates they are considering palliative extubation tomorrow. With his extremely poor prognosis, I believe palliative extubation is a reasonable pathway. RECOMMENDATIONS: 1. Continue antibiotics as you are doing. 2. Change IV fluids. Given hypernatremia. 3. Agree with palliative extubation tomorrow morning if the family is in agreement. PROGNOSIS: Extremely poor.
[2016-10-02] MEDS ORDERED: D5W IV ONE (17:30)
[2016-10-02] MEDS ORDERED: SODIUM BICARBONATE IV ONE (17:30)
[2016-10-03] MEDS: ZOSYN 3.375 GM/NS 50 ML IV SCH ×5 (00:50→23:55)
[2016-10-03] MEDS: DILANTIN IV SCH ×2 (00:51→13:51)
[2016-10-03 04:36] LABS: ALLEN TEST YES; BE 12.2 mmoll (-3.0-3.0); BLOOD TYPE ARTERIAL; DRAW SITE R RADIAL; METHB 1.2 % (0.0-1.5); O2(CT) 12.6 mL/dL (15.0-23.0); PCO2(98.6) 47 mmHg (35-45); PO2(98.6) 94 mmHg (60-100); SAMPLE BLOOD; SAO2 98.8 % (95.0-100.0); SRATE 10 BPM; THB 9.2 g/dL (11.5-17.4); TVOL 450 mL
[2016-10-03 04:37] LABS: MODALITY VENTILATOR
[2016-10-03] MEDS: DIPRIVAN 1% 100 ML IV SCH (05:18)
[2016-10-03 05:21] LABS: AGAP 10; ALBUMIN 2.1 g/dL (3.5-5.0); ALKALINE PHOSPHATASE 87 U/L (32-122); BUN 43 mg/dL (8-22); CALCIUM 7.6 mg/dL (8.8-10.2); CHLORIDE 104 mmol/L (98-107); COSMO 315; GOT 23 U/L (10-34); GPT 18 U/L (10-44); POTASSIUM 3.1 mmol/L (3.5-5.1); SODIUM 145 mmol/L (136-145); TCO2 31 mmol/L (25-35); TOTAL BILIRUBIN 0.26 mg/dL (0.20-1.00); TOTAL PROTEIN 5.5 g/dL (6.3-8.3)
[2016-10-03 06:16] LABS: EOS# 0.11 X1000 (0.0-0.7); EOS% 1.7 % (0.0-10.0); HEMATOCRIT 28.8 % (42.0-52.0); HEMOGLOBIN 9.4 g/dL (14.0-18.0); IMM GRAN# 0.04 X1000 (0.0-0.04); IMM GRAN% 0.6 % (0.0-0.5); MANUAL DIFF NEEDED? YES; MCH 30.6 PG (27-31); MCHC 32.6 g/dL (33-37); MCV 93.8 FL (81-99); MONO% 1.5 % (1.7-9.3); MPV 11.6 FL (7.4-10.4); NEUT% 93.2 % (42.2-75.2); PLT 88 X1000 (130-400); RBC 3.07 XMIL (4.7-6.1)
[2016-10-03] MEDS: D5 1/4 NS 1,000 ML IV SCH ×2 (06:16→14:46)
--- NOTE | 2016-10-03 07:34 | Diag Imaging Result Document ---
PROCEDURE NAME: CHEST-PORTABLE - 10/03/2016 AP PORTABLE CHEST ERECT, 10/03/2016 AT 0530 HOURS: FINDINGS: The endotracheal tube remains with its tip at the thoracic inlet. There continues to be pleural fluid on the right which may have increased slightly in volume and may be somewhat loculated. There is minimal pulmonary edema or pneumonia over the left lower lobe. There is hazy edema throughout much of the right lung. This has not changed appreciably since the previous study of 10/02/2016. The only appreciable change since 09/30/2016 has been a relative increase in pleural fluid volume on the right. IMPRESSION: Pulmonary edema plus minus pneumonia with right pleural effusion.
[2016-10-03 07:47] LABS: BANDS 2 % (0-1); LYMPHS 3 % (21-51)
[2016-10-03] MEDS ORDERED: MORPHINE IV ONE (08:18)
[2016-10-03] MEDS: MORPHINE IV PRN ×4 (09:21→21:53)
--- NOTE | 2016-10-03 09:54 | PROGRESS NOTE ---
DATE: 10/03/2016 OBJECTIVE: Vital signs: Temperature 96.5, heart rate 64 and regular, blood pressure 124/47, O2 saturation 99% on 40% FIO2, per vent. DIAGNOSTIC DATA: Blood gases: pH 7.50, PCO2 47, PO2 is 94, with rate 10, FIO2 40%, volume 450 and PEEP 5.0. ASSESSMENT AND PLAN: The patient is still on low-dose propofol. Discussion was made with family. They are in agreement to discontinue the ventilator. This will be done and the patient will be placed on nonrebreather mask with 100% O2. He will be given morphine as needed for comfort. It is felt that the patient cannot improve with his terminal lung cancer. will be imminent after discontinuation of the vent.
[2016-10-03] MEDS ORDERED: POTASSIUM CHLORIDE 40 MEQ/SWI 100 ML IV ONE (11:50)
[2016-10-03] MEDS: POTASSIUM CHLORIDE 20 MEQ/SWI 100 ML IV SCH (13:57)
[2016-10-03] MEDS: VANCOMYCIN 1,500 MG in NS 250 ML IV SCH (14:46)
--- NOTE | 2016-10-03 18:00 | PROGRESS NOTE ---
DATE: 10/03/2016 VITAL SIGNS: Temperature 96.4, heart rate 70, respirations 12, blood pressure 149/72. He is currently on a Venturi mask at 50%. He did much better than expected after extubation. He was transferred to the floor. He is more alert and wanting some liquid. Chest reveals decreased breath sounds on the right. PLAN: Lab and chest x-ray will be done tomorrow.
[2016-10-03] MEDS: NS 1,000 ML IV SCH (21:53)
[2016-10-04] MEDS: MORPHINE IV PRN (00:06)
[2016-10-04] MEDS ORDERED: POTASSIUM CHLORIDE 20 MEQ/SWI 100 ML IV SCH (01:00)
[2016-10-04] MEDS: POTASSIUM CHLORIDE 20 MEQ/SWI 100 ML IV SCH ×3 (01:27→01:29)
[2016-10-04 06:39] LABS: EOS# 0.02 X1000 (0.0-0.7); EOS% 0.3 % (0.0-10.0); HEMATOCRIT 29.3 % (42.0-52.0); HEMOGLOBIN 8.7 g/dL (14.0-18.0); IMM GRAN# 0.04 X1000 (0.0-0.04); IMM GRAN% 0.5 % (0.0-0.5); LYMPH# 0.27 X1000 (1.2-3.4); LYMPH% 3.6 % (20.5-51.1); MANUAL DIFF NEEDED? YES; MCHC 29.7 g/dL (33-37); MONO# 0.15 X1000 (0.11-0.59); MPV 10.7 FL (7.4-10.4); NEUT% 93.6 % (42.2-75.2); PLT 112 X1000 (130-400)
[2016-10-04] MEDS: DILANTIN IV SCH ×3 (06:51→14:18)
[2016-10-04 06:56] LABS: POTASSIUM 4.6 mmol/L (3.5-5.1); SODIUM 143 mmol/L (136-145)
[2016-10-04 06:57] LABS: AGAP 4; BUN 40 mg/dL (8-22); CALCIUM 7.7 mg/dL (8.8-10.2); CHLORIDE 105 mmol/L (98-107); COSMO 307; TCO2 34 mmol/L (25-35)
[2016-10-04 07:05] LABS: BANDS 3 % (0-1); LYMPHS 3 % (21-51); MONO 2 % (1-9)
[2016-10-04 07:06] LABS: HYPOCHROM 1+
--- NOTE | 2016-10-04 08:25 | PROGRESS NOTE ---
DATE: 10/04/2016 OBJECTIVE: Vital signs: Temperature 97.4, heart rate 56, respirations 16 and shallow. Blood pressure 77/26. O2 sat 88% on nonrebreather mask with 100% O2. General: The patient is unresponsive and with shallow respirations, this morning moving much less air. Lungs: Reveal decreased breath sounds bilaterally. ASSESSMENT: Discussion is made with the family. His condition is terminal, and he is DNR level 1. He was able to take a small amount of clear liquids last night, but is unresponsive this morning. PLAN: Comfort measures only.
--- NOTE | 2016-10-04 08:39 | Diag Imaging Result Document ---
PROCEDURE NAME: CHEST-PORTABLE - 10/03/2016 SINGLE FRONTAL RADIOGRAPH OF THE CHEST: COMPARISON: 10/03/2016. FINDINGS: There appears to have been interval removal of the EG tube and NG tube. There has been interval marked worsening of opacity throughout the right lung. Only a small portion of the right lung in the mid lung zone appears to be aerated. This indicates significant enlargement of the right pleural fluid collection. There is worsening infiltrate at the medial left lower lung zone as well indicating edema and/or pneumonia. Cardiac silhouette appears to be stable. IMPRESSION: 1. Interval marked worsening of opacity on the right with subtotal opacification of the right hemithorax likely due to a large right effusion. 2. Worsening infiltrate at the medial left lung base as described.
[2016-10-04] MEDS: ZOSYN 3.375 GM/NS 50 ML IV SCH ×3 (09:09→21:57)
[2016-10-04] MEDS: NS 1,000 ML IV SCH ×2 (12:53→12:54)
[2016-10-04] MEDS: VANCOMYCIN 1,500 MG in NS 250 ML IV SCH (16:30)
[2016-10-04 20:17] VITALS: BP 59/21
[2016-10-05] MEDS: NS 1,000 ML IV SCH ×2 (01:25→05:03)
[2016-10-05] MEDS: ZOSYN 3.375 GM/NS 50 ML IV SCH (05:02)
[2016-10-05] MEDS: DILANTIN IV SCH (05:07)
--- NOTE | 2016-10-07 02:37 | DISCHARGE SUMMARY ---
ADMISSION DATE: 09/30/2016 DISCHARGE DATE: 10/05/2016 DISCHARGE SUMMARY AND NOTE PRIMARY CARE PHYSICIAN: Dr. Nawaf Coffey. The patient was admitted 09/30/2016 and passed 10/05/2016 at approximately 0500. CHIEF COMPLAINT ON ADMISSION: Unresponsive and dyspneic. HISTORY OF PRESENT ILLNESS: In brief, the patient was a 76-year-old male with known lung cancer and superior vena cava syndrome currently residing at [facility] since 2008, currently a DNR status, acutely transported to the emergency room and intubated due to inability to contact family regarding the patient's wishes. HOSPITAL COURSE: The patient was managed as appropriate for symptomatic care. Evaluation by Dr. Olivares, pulmonology fare enforcement officer, was performed, and patient was deemed most appropriate for palliative options. At that point, the patient was extubated but did survive beyond those measures, transported to a more convenient room so that he could be cared for and watched by his family members. With the availability of morphine and palliative care efforts, the patient passed with family at the bedside on the morning of 10/05/2016. IMAGING: The patient had a chest x-ray 10/03/2016 that showed interval worse marking on the right with subtotal opacification of the right hemithorax due to large right pleural effusion and worsening of the infiltrate in the medial left lung base as dictated. PROBLEM LIST ON DISCHARGE AND AT TIME OF : 1. Dementia with expressive aphasia. 2. Left middle cerebral arterial stroke 4 years ago with right-sided weakness. 3. Vascular dementia. 4. Coronary artery disease with myocardial infarctions 2001 and 2004. 5. History of partial seizures. 6. Superior vena cava syndrome. 7. Lung cancer with right-sided pleural effusion and extensive infiltrates. LABS: White blood cell count remained within normal limits. Hemoglobin dropping from 11.2 to 8.6, MCV 101.1. PT INR within normal limits. Last ABG drawn showed a pH of 7.5 with a pCO2 of 47 and bicarb of 34.5 FiO2. Patient had been extubated at the time of with the BUN and creatinine within normal limits. Vancomycin level approximately 10.15. Microbiology showed blood culture positive for Serratia marcescens. Sputum culture positive of Haemophilus influenzae, Serratia, and Klebsiella pneumoniae. The patient passed with the time of to be noted on the chart. MEDICATIONS PER THE MEDICATION RECONCILIATION ORDER FORM: The patient had been withdrawn on some of his medications at this time. The patient has passed with family at the bedside. We will follow with the certificates, notify the primary care, and provide any additional information as necessary. DATE OF : 1940. DATE OF : 10/05/2015.
--- NOTE | 2016-10-14 19:32 | DISCHARGE SUMMARY ---
ADMISSION DATE: 09/30/2016 DISCHARGE DATE: 10/05/2016 DISCHARGE SUMMARY ADDENDUM: Question was related to sepsis. Blood culture grew Serratia marcescens. He required Levophed and several boluses of IV fluids to maintain blood pressure initially. He was treated with intravenous antibiotics. He remained afebrile but had leukocytosis and pneumonia, also lung cancer. Due to his clinical course and treatment necessary, it is felt that he had sepsis related to pneumonia.
== END 2016-10-05 06:00 | disposition expired | DRG 871 ==
LOC: EDBD → SUPCPDRO 09:52 → ED 09:52 → ICU 12:30 → 3N 10-03 15:31
PROVIDERS: ADMIT Family Medicine; ATTEND Family Medicine
PROC: 5A1945Z Respiratory Ventilation, 24-96 Consecutive Hours (ICD-10-PCS; principal; 2016-09-30)
PROC: 0BH17EZ Insertion of Endotracheal Airway into Trachea, Via Natural or Artificial Opening (ICD-10-PCS; 2016-09-30)
DX: A41.9 Sepsis, unspecified organism (principal); J96.01 Acute respiratory failure with hypoxia; J69.0 Pneumonitis due to inhalation of food and vomit; E46 Unspecified protein-calorie malnutrition; R64 Cachexia; J90 Pleural effusion, not elsewhere classified; C34.90 Malignant neoplasm of unspecified part of unspecified bronchus or lung; Z99.81 Dependence on supplemental oxygen; I87.1 Compression of vein; R47.01 Aphasia; G40.802 Other epilepsy, not intractable, without status epilepticus; Z68.1 Body mass index [BMI] 19.9 or less, adult; F01.50 Vascular dementia, unspecified severity, without behavioral disturbance, psychotic disturbance, mood disturbance, and anxiety; E11.9 Type 2 diabetes mellitus without complications; I10 Essential (primary) hypertension; H40.9 Unspecified glaucoma; Z66 Do not resuscitate; I25.5 Ischemic cardiomyopathy; I25.10 Atherosclerotic heart disease of native coronary artery without angina pectoris; F17.210 Nicotine dependence, cigarettes, uncomplicated; Z79.899 Other long term (current) drug therapy; Z86.73 Personal history of transient ischemic attack (TIA), and cerebral infarction without residual deficits; Z95.5 Presence of coronary angioplasty implant and graft; Z71.6 Tobacco abuse counseling; Z79.82 Long term (current) use of aspirin; Z82.49 Family history of ischemic heart disease and other diseases of the circulatory system; Z83.3 Family history of diabetes mellitus; I25.2 Old myocardial infarction
CPT/HCPCS: 31500; 51702; 71010; 80048; 80053; 80185; 80202; 81001; 82550; 82805; 83605; 84484; 85025; 85610; 85730; 87040; 87070; 87077; 87184; 87186; 87205; 93005; 93010; 94003; 94761; 94762; 96365; 96366; 96368; J1160; J1165; J2270; J2543; J3370; J3480; J7030; J7040; J7050; J7070; 99285-25